=== PATIENT | male | born 1995 | race Caucasian/White ===

== ENCOUNTER 2018-11-10 11:37 | Inpatient (IN) | payer MEDICAID ==
[2018-11-10] VITALS (40 sets, daily range): BP systolic 136–250; BP diastolic 78–140
[~2018-11-10] VITALS: Ht 157.5 cm; Wt 54.0 kg
[~2018-11-10 11:37] MED LIST: AMLO10TA4; COR12; COR3; ENAL10TA71; FOLI1TAB87; ISRA5CAP
[2018-11-10] MEDS ORDERED: ONDANSETRON HCL 4MG/2ML INJ IV STA (11:51)
[2018-11-10] MEDS ORDERED: MORPHINE SULFATE 4 MG/ML CPJ (NOT FOR IM USE) IV STA (11:51)
[2018-11-10] MEDS ORDERED: FAMOTIDINE 20MG/2ML VIAL IV STA (11:51)
[2018-11-10] MEDS ORDERED: LABETALOL 5MG/ML SYR 20 MG/4 ML SYRINGE IV ONE (12:00)
[2018-11-10 12:33] LABS: INR 1.1; PROTHROMBIN TIME 11.6 sec (9.6-11.0)
[2018-11-10] MEDS ORDERED: NICARDIPINE 40MG/200ML PREMIX 200 ML IV STA (12:44)
[2018-11-10 13:01] LABS: BASOPHILS % 1.5 % (0.0-2.0); HEMATOCRIT. 38.5 % (42.0-52.0); HEMOGLOBIN. 12.6 g/dL (14.0-18.0); LYMPHOCYTES % 13.4 % (20.0-50.0); MEAN CORPUSCULAR HEMOGLOBIN 32.1 pg (28.0-32.0); MEAN CORPUSCULAR VOLUME 98.1 fL (80.0-94.0); MONOCYTES % 5.5 % (2.0-8.0); NEUTROPHILS % 76.6 % (40.0-76.0); PLATELET 155 x1000/uL (130-400); RED BLOOD CELL COUNT 3.93 mill/uL (4.7-6.1); RED CELL DISTRIBUTION WIDTH 16.5 % (11.6-14.6)
[2018-11-10 13:04] LABS: CHLORIDE 100 mEq/L (98-107)
[2018-11-10] MEDS ORDERED: REN800 MT (15:19)
[2018-11-10] MEDS ORDERED: SODI325T PO (15:19)
[2018-11-10] MEDS ORDERED: NIFE60TA64 MT (15:19)
[2018-11-10] MEDS ORDERED: CINA30 MT (15:19)
[2018-11-10] MEDS ORDERED: FOLI0.8T23 MT (15:19)
[2018-11-10] MEDS ORDERED: CLON0.2T MT (15:19)
[2018-11-10] MEDS ORDERED: ONDANSETRON HCL 4MG/2ML INJ IV PRN (18:00)
[2018-11-10] MEDS ORDERED: LORAZEPAM 2MG/ML CPJ IV PRN (18:00)
[2018-11-10] MEDS ORDERED: GUAIFENESIN 200MG/10ML SUGAR FREE UDC PO PRN (18:00)
[2018-11-10] MEDS ORDERED: ENOXAPARIN 40MG/0.4ML SYR SUBCUT SCH (18:00)
[2018-11-10] MEDS ORDERED: ACETAMINOPHEN 325MG TABLET PO PRN (18:00)
[2018-11-10] MEDS ORDERED: HYDROCODONE/ACETAMINOPHEN 10/325MG TABLET PO PRN (18:00)
[2018-11-10] MEDS ORDERED: CLONIDINE 0.1MG TABLET PO PRN (18:00)
[2018-11-10] MEDS ORDERED: NA PHOS,M-B/NA PHOS,DI-BA ENEMA 118ML PR PRN (18:00)
[2018-11-10] MEDS ORDERED: MORPHINE SULFATE 2 MG/ML CPJ (NOT FOR IM USE) IV PRN (18:00)
[2018-11-10] MEDS ORDERED: IPRATROPIUM/ALBUTEROL 0.5-3(2.5)MG/3ML NEB HHN PRN (18:00)
[2018-11-10] MEDS ORDERED: DIPHENHYDRAMINE 50MG/ML VIAL IV PRN (18:00)
[2018-11-10] MEDS ORDERED: MAGNESIUM/ALUMINUM HYDROXIDE/SIMETHICONE 30ML UDC PO PRN (18:00)
[2018-11-10] MEDS ORDERED: DOCUSATE SODIUM 100MG CAPSULE PO PRN (18:00)
[2018-11-10] MEDS: NICARDIPINE 50 MG in SODIUM CHLORIDE 0.9% 230 ML IV PRN (20:44)
[2018-11-10] MEDS: SODIUM CHLORIDE 0.9% INJ 3ML FLUSH IVF SCH (21:30)
[2018-11-10] MEDS: ENOXAPARIN 30MG/0.3ML SYR SUBCUT SCH (22:48)
[2018-11-11] VITALS (80 sets, daily range): BP systolic 140–192; BP diastolic 78–130
[2018-11-11 01:43] LABS: CREATINE KINASE MB FRACTION 2.4 ng/mL (0.5-3.6)
[2018-11-11] MEDS: NICARDIPINE 50 MG in SODIUM CHLORIDE 0.9% 230 ML IV PRN ×2 (03:00→16:45)
[2018-11-11] MEDS: SODIUM CHLORIDE 0.9% INJ 3ML FLUSH IVF SCH ×3 (05:10→21:19)
[2018-11-11 06:33] LABS: EOSINOPHILS % 3.2 % (0.0-5.0); HEMATOCRIT. 36.5 % (42.0-52.0); HEMOGLOBIN. 11.9 g/dL (14.0-18.0); MEAN CORPUSCULAR HEMOGLOBIN 32.4 pg (28.0-32.0); MEAN CORPUSCULAR VOLUME 99.4 fL (80.0-94.0); MONOCYTES % 7.4 % (2.0-8.0); NEUTROPHILS % 72.4 % (40.0-76.0); PLATELET 117 x1000/uL (130-400); RED BLOOD CELL COUNT 3.68 mill/uL (4.7-6.1); RED CELL DISTRIBUTION WIDTH 16.5 % (11.6-14.6)
[2018-11-11 06:40] LABS: CHLORIDE 105 mEq/L (98-107)
[2018-11-11 07:00] LABS: CREATINE KINASE 202 IU/L (39-308); T4 FREE 1.29 ng/dL (0.76-1.46)
[2018-11-11 07:03] LABS: CREATINE KINASE MB FRACTION 1.8 ng/mL (0.5-3.6)
[2018-11-11] MEDS: ASPIRIN 81MG EC TABLET PO SCH (08:51)
[2018-11-11] MEDS ORDERED: DEXTROSE 50% WATER 50ML SYRINGE IV NR (09:45)
[2018-11-11] MEDS ORDERED: INSULIN REGULAR (HUMULIN R) 300UNITS/3ML IV NR (09:53)
[2018-11-11] MEDS ORDERED: CALCIUM CHLORIDE 1,000 MG in DEXT 5% WATER 90 ML IV NR (10:00)
[2018-11-11] MEDS: ENALAPRIL 5MG TABLET PO SCH ×2 (11:22→20:32)
[2018-11-11] MEDS: SEVELAMER CARBONATE 800 MG TABLET PO SCH ×2 (13:20→17:22)
[2018-11-11] MEDS: ENOXAPARIN 30MG/0.3ML SYR SUBCUT SCH (19:43)
[2018-11-12] VITALS (89 sets, daily range): BP systolic 129–180; BP diastolic 64–116
[2018-11-12] MEDS: NICARDIPINE 50 MG in SODIUM CHLORIDE 0.9% 230 ML IV PRN ×3 (01:44→17:53)
[2018-11-12] MEDS: SODIUM CHLORIDE 0.9% INJ 3ML FLUSH IVF SCH ×3 (05:51→21:17)
[2018-11-12 07:02] LABS: BASOPHILS % 0.9 % (0.0-2.0); EOSINOPHILS % 5.3 % (0.0-5.0); HEMATOCRIT. 38.1 % (42.0-52.0); HEMOGLOBIN. 12.4 g/dL (14.0-18.0); LYMPHOCYTES % 22.2 % (20.0-50.0); MEAN CORPUSCULAR HEMOGLOBIN 31.6 pg (28.0-32.0); MEAN CORPUSCULAR VOLUME 97.7 fL (80.0-94.0); MEAN PLATELET VOLUME 10.2 fl (7.4-10.4); MONOCYTES % 10.5 % (2.0-8.0); NEUTROPHILS % 61.1 % (40.0-76.0); PLATELET 123 x1000/uL (130-400); RED CELL DISTRIBUTION WIDTH 15.9 % (11.6-14.6)
[2018-11-12 07:21] LABS: PHOSPHORUS 5.9 mg/dL (2.5-4.9)
[2018-11-12] MEDS: SEVELAMER CARBONATE 800 MG TABLET PO SCH ×3 (08:33→17:20)
[2018-11-12] MEDS: ASPIRIN 81MG EC TABLET PO SCH (08:33)
[2018-11-12] MEDS: ENALAPRIL 5MG TABLET PO SCH ×2 (08:33→20:22)
[2018-11-12 11:32] LABS: HEPATITIS B SURFACE ANTIGEN NEGATIVE
[2018-11-12] MEDS: ENOXAPARIN 30MG/0.3ML SYR SUBCUT SCH (19:56)
[2018-11-13] VITALS (58 sets, daily range): BP systolic 134–232; BP diastolic 59–136
[2018-11-13] MEDS: NICARDIPINE 50 MG in SODIUM CHLORIDE 0.9% 230 ML IV PRN (00:17)
[2018-11-13] MEDS: SODIUM CHLORIDE 0.9% INJ 3ML FLUSH IVF SCH ×2 (05:29→13:07)
[2018-11-13 05:56] LABS: BASOPHILS % 1.4 % (0.0-2.0); EOSINOPHILS % 4.6 % (0.0-5.0); HEMATOCRIT. 34.7 % (42.0-52.0); HEMOGLOBIN. 11.8 g/dL (14.0-18.0); LYMPHOCYTES % 23.5 % (20.0-50.0); MEAN CORPUSCULAR HEMOGLOBIN 32.5 pg (28.0-32.0); MEAN CORPUSCULAR VOLUME 95.8 fL (80.0-94.0); MEAN PLATELET VOLUME 10.3 fl (7.4-10.4); MONOCYTES % 11.7 % (2.0-8.0); NEUTROPHILS % 58.8 % (40.0-76.0); PLATELET 140 x1000/uL (130-400); RED BLOOD CELL COUNT 3.62 mill/uL (4.7-6.1); RED CELL DISTRIBUTION WIDTH 15.5 % (11.6-14.6)
[2018-11-13] MEDS: ASPIRIN 81MG EC TABLET PO SCH (08:07)
[2018-11-13] MEDS: SEVELAMER CARBONATE 800 MG TABLET PO SCH ×2 (08:07→12:58)
[2018-11-13] MEDS: ENALAPRIL 5MG TABLET PO SCH (08:07)
[2018-11-13] MEDS ORDERED: CLONIDINE 0.1MG TABLET PO SCH (14:00)
[2018-11-13] MEDS ORDERED: NIFEDIPINE XL 60MG TAB PO SCH (14:00)
== END 2018-11-13 18:03 | disposition left against medical advice (07) | DRG 470 ==
LOC: ER 11:37 → EDBEDREQTM 12:24 → EDBEDREQSVC 12:24 → EDBEDREQ 12:24 → CVICU 12:57 → EDBEDREQTM 12:59 → EDBEDREQSVC 12:59 → EDBEDREQ 12:59 → ENRESERV 13:34
PROVIDERS: ADMIT Internal Medicine; ATTEND Internal Medicine
PROC: 5A1D70Z Performance of Urinary Filtration, Intermittent, Less than 6 Hours Per Day (ICD-10-PCS; 2018-11-10)
PROC: 5A1D70Z Performance of Urinary Filtration, Intermittent, Less than 6 Hours Per Day (ICD-10-PCS; 2018-11-11)
PROC: 5A1D70Z Performance of Urinary Filtration, Intermittent, Less than 6 Hours Per Day (ICD-10-PCS; principal; 2018-11-13)
DX: I13.11 Hypertensive heart and chronic kidney disease without heart failure, with stage 5 chronic kidney disease, or end stage renal disease (principal); E43 Unspecified severe protein-calorie malnutrition; N18.6 End stage renal disease; E87.5 Hyperkalemia; I16.0 Hypertensive urgency; D63.1 Anemia in chronic kidney disease; G89.29 Other chronic pain; Z79.899 Other long term (current) drug therapy; Z87.441 Personal history of nephrotic syndrome; Z90.5 Acquired absence of kidney; Z99.2 Dependence on renal dialysis; Z88.9 Allergy status to unspecified drugs, medicaments and biological substances; Z68.21 Body mass index [BMI] 21.0-21.9, adult
CPT/HCPCS: 36415; 71045; 74176; 80048; 82550; 82553; 82962; 84100; 84439; 84443; 84484; 86803; 87340; 93005; 93306; 96374; 96375; 99291; J1650; J1815; J2060; J2270; J2405; J3490; J7050; J7060

== ENCOUNTER 2021-12-28 04:43 | Inpatient (IN) | payer MEDICAID ==
[~2021-12-28] VITALS: Ht 152.4 cm; Wt 52.6 kg
[2021-12-28] VITALS (26 sets, daily range): BP systolic 123–173; BP diastolic 62–113
[~2021-12-28 04:43] MED LIST changes: +CINA30 MT; +CLON0.2T MT; +FOLI0.8T23 MT; +NIFE-32 MT; +REN800 MT; +SODI325T PO
[2021-12-28] MEDS ORDERED: ONDANSETRON HCL 4MG/2ML INJ IV STA (04:46)
[2021-12-28] MEDS ORDERED: NICARDIPINE 100 MG in SODIUM CHLORIDE 0.9% 60 ML IV ONE (05:00)
[2021-12-28] MEDS ORDERED: LABETALOL 5MG/ML SYR 20 MG/4 ML SYRINGE IV ONE (05:00)
[2021-12-28 05:41] LABS: BASOPHILS % 0.6 % (0.0-2.0); EOSINOPHILS % 1.9 % (0.0-5.0); HEMATOCRIT. 28.8 % (42.0-52.0); HEMOGLOBIN. 9.5 g/dL (14.0-18.0); LYMPHOCYTES % 11.7 % (20.0-50.0); MEAN CORPUSCULAR HEMOGLOBIN 30.9 pg (28.0-32.0); MEAN CORPUSCULAR VOLUME 93.4 fL (80.0-94.0); MEAN PLATELET VOLUME 9.7 fl (7.4-10.4); MONOCYTES % 8.5 % (2.0-8.0); NEUTROPHILS % 77.3 % (40.0-76.0); PLATELET 158 x1000/uL (130-400); RED BLOOD CELL COUNT 3.08 mill/uL (4.7-6.1); RED CELL DISTRIBUTION WIDTH 16.7 % (11.6-14.6)
[2021-12-28 05:45] LABS: CHLORIDE 104 mEq/L (98-107)
[2021-12-28] MEDS ORDERED: BUDESONIDE 0.5MG/2ML NEB HHN SCH (10:45)
[2021-12-28] MEDS ORDERED: IPRATROPIUM/ALBUTEROL 0.5-3(2.5)MG/3ML NEB HHN PRN ×2 (10:45→12:30)
[2021-12-28] MEDS ORDERED: NALOXONE HCL 0.4MG/ML VIAL IV PRN (12:30)
[2021-12-28] MEDS ORDERED: CLONIDINE 0.1MG TABLET PO PRN (12:30)
[2021-12-28] MEDS ORDERED: LORAZEPAM 0.5MG TABLET PO PRN (12:30)
[2021-12-28] MEDS ORDERED: ONDANSETRON HCL 4MG/2ML INJ IV PRN (12:30)
[2021-12-28] MEDS ORDERED: DOCUSATE SODIUM 100MG CAPSULE PO PRN (12:30)
[2021-12-28] MEDS ORDERED: HYDROCODONE/ACETAMINOPHEN 5/325MG TABLET PO PRN (12:30)
[2021-12-28] MEDS ORDERED: ACETAMINOPHEN 325MG TABLET PO PRN ×2 (12:30)
[2021-12-28] MEDS ORDERED: NICARDIPINE 100 MG in SODIUM CHLORIDE 0.9% 60 ML IV PRN (19:00)
[2021-12-28 19:58] LABS: BG BASE EXCESS -0.2 mmol/L (-2.0-2.0); BG CARBOXYHEMOGLOBIN 0.1 % (0.5-1.5); BG DEOXYHEMOGLOBIN 3.2 % (0.0-5.0); BG FRACTION INSPIRED OXYGEN 21; BG HCO3 ACT 23.1 mmol/L (22.0-26.0); BG METHEMOGLOBIN 0.3 % (0.0-1.5); BG OXYGEN SATURATION 96.8 % (92.0-98.5); BG OXYHEMOGLOBIN 96.4 % (94.0-97.0); BG PCO2 32.7 mmHg (35.0-45.0); BG PH 7.467 (7.350-7.450); BG PO2 93.9 mmHg (75.0-100.0); BG SAMPLE SITE LEFT RADIAL; BG TOTAL HEMOGLOBIN 10.3 g/dL (12.0-18.0); BG VENT MODE ROOM AIR
[2021-12-29 00:14] VITALS: BP 138/72
[2021-12-29] MEDS ORDERED: NIFEDIPINE XL 30MG TAB PO SCH (09:00)
[2021-12-29] MEDS ORDERED: FOLIC ACID/VITAMIN B COMP W-C TABLET PO SCH (09:00)
[2021-12-31 08:08] LABS: HBSAG SCREEN Negative (Negative)
== END 2021-12-29 02:21 | disposition left against medical advice (07) | DRG 470 ==
LOC: ER 04:43 → CVICU 06:07
PROVIDERS: ADMIT Internal Medicine; ATTEND Internal Medicine
PROC: 5A09357 Assistance with Respiratory Ventilation, Less than 24 Consecutive Hours, Continuous Positive Airway Pressure (ICD-10-PCS; principal; 2021-12-28)
PROC: 5A1D70Z Performance of Urinary Filtration, Intermittent, Less than 6 Hours Per Day (ICD-10-PCS; 2021-12-28)
DX: I13.11 Hypertensive heart and chronic kidney disease without heart failure, with stage 5 chronic kidney disease, or end stage renal disease (principal); J96.01 Acute respiratory failure with hypoxia; E44.1 Mild protein-calorie malnutrition; T86.12 Kidney transplant failure; E87.20 Acidosis, unspecified; I27.20 Pulmonary hypertension, unspecified; D63.1 Anemia in chronic kidney disease; N18.6 End stage renal disease; E87.70 Fluid overload, unspecified; R00.0 Tachycardia, unspecified; R79.89 Other specified abnormal findings of blood chemistry; I16.1 Hypertensive emergency; J44.9 Chronic obstructive pulmonary disease, unspecified; Z20.822 Contact with and (suspected) exposure to COVID-19; Y83.0 Surgical operation with transplant of whole organ as the cause of abnormal reaction of the patient, or of later complication, without mention of misadventure at the time of the procedure; J98.11 Atelectasis; D72.829 Elevated white blood cell count, unspecified; Z53.29 Procedure and treatment not carried out because of patient's decision for other reasons; Z90.5 Acquired absence of kidney; Z99.2 Dependence on renal dialysis; Z79.899 Other long term (current) drug therapy; Z68.22 Body mass index [BMI] 22.0-22.9, adult; Z88.1 Allergy status to other antibiotic agents; Y92.89 Other specified places as the place of occurrence of the external cause
CPT/HCPCS: 36415; 36600; 71045; 80053; 82375; 82805; 84484; 85025; 86705; 86709; 86803; 87340; 87426; 93005; 94660; 99285; C9803; J3490; J7050; J7626

== ENCOUNTER 2022-01-11 23:29 | Emergency (ER) | payer MEDICAID ==
[~2022-01-11] VITALS: Ht 152.4 cm; Wt 49.3 kg
[2022-01-11 23:34] VITALS: BP 164/110
== END 2022-01-12 02:41 | disposition left against medical advice (07) ==
LOC: ER 23:29
DX: Z53.21 Procedure and treatment not carried out due to patient leaving prior to being seen by health care provider (principal)

== ENCOUNTER 2022-03-21 16:53 | Emergency (ER) | payer MEDICAID ==
[~2022-03-21] VITALS: Ht 165.1 cm; Wt 55.0 kg
[2022-03-21 18:48] LABS: BASOPHILS % 1.2 % (0.0-2.0); EOSINOPHILS % 3.9 % (0.0-5.0); HEMOGLOBIN. 8.6 g/dL (14.0-18.0); LYMPHOCYTES % 10.4 % (20.0-50.0); MEAN CORPUSCULAR HEMOGLOBIN 32.7 pg (28.0-32.0); MEAN PLATELET VOLUME 11.3 fl (7.4-10.4); MONOCYTES % 6.1 % (2.0-8.0); NEUTROPHILS % 78.4 % (40.0-76.0); PLATELET 146 x1000/uL (130-400); RED BLOOD CELL COUNT 2.63 mill/uL (4.7-6.1); RED CELL DISTRIBUTION WIDTH 17.4 % (11.6-14.6)
[2022-03-21 19:07] LABS: CHLORIDE 103 mEq/L (98-107)
[2022-03-21] MEDS ORDERED: INSULIN REGULAR (HUMULIN R) 300UNITS/3ML VIAL IV NR (20:15)
[2022-03-21] MEDS ORDERED: SODIUM POLYSTYRENE SULFONATE 15 G/60 ML BOT PO NR (20:15)
[2022-03-21] MEDS ORDERED: CALCIUM CHLORIDE 1GM/10ML SYR IV NR (20:15)
[2022-03-21] MEDS ORDERED: ALBUTEROL (0.083%) 2.5MG/3ML NEB HHN NR (20:15)
[2022-03-21] MEDS ORDERED: DEXTROSE 50% WATER 50ML SYRINGE IV NR (20:15)
[2022-03-21] MEDS ORDERED: ASPIRIN 81MG TABLET PO ONE (21:30)
[2022-03-21] MEDS ORDERED: DEXTROSE 50% WATER 50ML SYRINGE IV ONE (22:30)
[2022-03-21 23:55] VITALS: BP 166/116
[2022-03-21 23:58] VITALS: BP 165/114
[2022-03-22] VITALS (9 sets, daily range): BP systolic 115–180; BP diastolic 79–112
[2022-03-22] MEDS ORDERED: ONDANSETRON HCL 4MG/2ML INJ IV PRN
[2022-03-22] MEDS ORDERED: DIPHENHYDRAMINE 50MG/ML VIAL IV PRN
[2022-03-22] MEDS ORDERED: ACETAMINOPHEN 325MG TABLET PO PRN ×2
[2022-03-22] MEDS ORDERED: CLONIDINE 0.1MG TABLET PO PRN
[2022-03-22] MEDS: HYDRALAZINE 20MG/ML VIAL IV PRN ×2 (03:19→08:29)
[2022-03-22 03:54] LABS: HEPATITIS B SURFACE ANTIGEN NEGATIVE
[2022-03-22 08:58] LABS: BASOPHILS % 1.7 % (0.0-2.0); EOSINOPHILS % 3.6 % (0.0-5.0); HEMATOCRIT. 25.8 % (42.0-52.0); HEMOGLOBIN. 8.7 g/dL (14.0-18.0); LYMPHOCYTES % 13.1 % (20.0-50.0); MEAN CORPUSCULAR HEMOGLOBIN 32.4 pg (28.0-32.0); MEAN CORPUSCULAR VOLUME 96.6 fL (80.0-94.0); MEAN PLATELET VOLUME 10.7 fl (7.4-10.4); MONOCYTES % 7.6 % (2.0-8.0); PLATELET 140 x1000/uL (130-400); RED BLOOD CELL COUNT 2.67 mill/uL (4.7-6.1); RED CELL DISTRIBUTION WIDTH 16.3 % (11.6-14.6)
[2022-03-22] MEDS ORDERED: LABETALOL HCL 300MG TABLET PO SCH (09:00)
[2022-03-22] MEDS ORDERED: LOSARTAN POTASSIUM 50 MG TABLET PO SCH (09:00)
[2022-03-22] MEDS ORDERED: AMLODIPINE 10MG TABLET PO SCH (09:00)
[2022-03-22 09:18] LABS: PHOSPHORUS 5.4 mg/dL (2.5-4.9)
[2022-03-22] MEDS: HYDRALAZINE HCL 50MG TABLET PO SCH ×2 (09:18→14:00)
[2022-03-22] MEDS: SODIUM CHLORIDE 0.9% INJ 3ML FLUSH IVF SCH ×2 (09:18→14:00)
[2022-03-22] MEDS: SEVELAMER CARBONATE 800 MG TABLET PO SCH ×2 (09:19→13:00)
[2022-03-22] MEDS: CALCIUM 1250MG TABLET (500MG ELEMENTAL CALCIUM) PO SCH ×2 (09:54→13:00)
== END 2022-03-22 17:37 | disposition home or self-care (01) ==
LOC: ER 16:53 → EDBEDREQTM 23:12 → EDBEDREQ 23:12 → EDBEDREQSVC 03-22 07:48 → SUPCPDRO 03-22 11:20 → CANBEDREQ 03-22 16:59 → ER 03-22 17:37
DX: E87.5 Hyperkalemia (principal); I12.0 Hypertensive chronic kidney disease with stage 5 chronic kidney disease or end stage renal disease; N18.6 End stage renal disease; D64.9 Anemia, unspecified; I45.2 Bifascicular block; Z87.441 Personal history of nephrotic syndrome; Z90.5 Acquired absence of kidney; T86.12 Kidney transplant failure; Z99.2 Dependence on renal dialysis; Z91.15 Patient's noncompliance with renal dialysis; Z79.899 Other long term (current) drug therapy
CPT/HCPCS: 36415; 71045; 80048; 80053; 82962; 83735; 84100; 84484; 85025; 86705; 86709; 86803; 87340; 93005; 96361; 96374; 96375; 96376; 99285; J0360; J1815; J3490; Z7610; 90935

== ENCOUNTER 2022-04-18 11:58 | Emergency (ER) | payer MEDICAID ==
[~2022-04-18] VITALS: Ht 152.4 cm; Wt 59.0 kg
[2022-04-18 12:01] VITALS: BP 240/142
[2022-04-18] MEDS: LABETALOL HCL 200MG TABLET PO SCH ×2 (12:30→14:46)
[2022-04-18] MEDS ORDERED: AMLODIPINE 10MG TABLET PO ONE (12:30)
[2022-04-18] MEDS ORDERED: CLONIDINE 0.3MG TABLET PO ONE (14:30)
[2022-04-18] MEDS ORDERED: HYDRALAZINE HCL 10MG TABLET PO ONE (14:45)
== END 2022-04-18 15:37 ==
LOC: ER 12:05
DX: R68.89 Other general symptoms and signs (principal); I10 Essential (primary) hypertension; Z99.2 Dependence on renal dialysis; Z79.899 Other long term (current) drug therapy
CPT/HCPCS: 99284